=== PATIENT | female | born 1980 | race Caucasian/White ===

== ENCOUNTER 2016-07-26 09:30 | Emergency (ER) | payer OTHER ==
[~2016-07-26] VITALS: Ht 154.9 cm; Wt 76.7 kg
[~2016-07-26 09:30] MED LIST: CETI10TA22 PO; CLIN300C86 PO; HYDR-2666 PO; IBUP200T43 PO; IBUP800T PO; TRAM50TA PO
[2016-07-26] MEDS ORDERED: DIAZEPAM 10 MG/2 ML DISP.SYRIN. IV ONE (10:15)
[2016-07-26] MEDS ORDERED: DIPHENHYDRAMINE 50 MG/ML VIAL IVP ONE (10:15)
[2016-07-26] MEDS ORDERED: IV NORMAL SALINE 1,000ML 1,000 ML IV ONE (10:15)
[2016-07-26] MEDS ORDERED: KETOROLAC 15 MG/ML VIAL. IV ONE (10:15)
[2016-07-26] MEDS ORDERED: PROCHLORPERAZINE 10 MG/2 ML VIAL. IV ONE (10:15)
--- NOTE | 2016-07-26 10:52 | ED.ADGEN ---
Past History Past Medical History: No Pertinent History, Other Past Surgical History: Cancer Surgery, , Hysterectomy, Other Smoking: Non-smoker Alcohol Use: None Drug Use: None Adult General HPI HPI Patient is a 36-year-old female presents emergency department complaining of headache. Patient has a history of headaches. She states that this is been ongoing for approximately one week. Initially, it was responsive to Excedrin but has now become refractory. Other than bilateral parietal pain she denies any associated symptoms such as nausea, vomiting, visual changes. Review of Systems Review of Systems Constitutional: Denies fever or chills [] Eyes: Denies change in visual acuity, redness, or eye pain [] HENT: Denies nasal congestion or sore throat [] Respiratory: Denies cough or shortness of breath [] Cardiovascular: No additional information not addressed in HPI [] GI: Denies abdominal pain, nausea, vomiting, bloody stools or diarrhea [] : Denies dysuria or hematuria [] Musculoskeletal: Denies back pain or joint pain [] Integument: Denies rash or skin lesions [] Neurologic: Denies headache, focal weakness or sensory changes [] Endocrine: Denies polyuria or polydipsia [] Current Medications Current Medications Current Medications Medications (Trade) Dose Ordered Sig/Shira Start Time Stop Time Status Last Admin Dose Admin Diazepam (Valium) 5 mg 1X ONCE 07/26/16 10:15 07/26/16 10:16 DC 07/26/16 10:15 5 MG Diphenhydramine HCl 25 mg 25 mg 1X ONCE 07/26/16 10:15 07/26/16 10:16 DC 07/26/16 10:28 25 MG Ketorolac Tromethamine (Toradol) 15 mg 1X ONCE 07/26/16 10:15 07/26/16 10:16 DC 07/26/16 10:27 15 MG Prochlorperazine Edisylate (Compazine) 10 mg 1X ONCE 07/26/16 10:15 07/26/16 10:16 DC 07/26/16 10:27 10 MG Sodium Chloride (Iv Sodium Chloride 0.9% 1,000ml) 1,000 ml @ 1,000 mls/hr 1X ONCE 07/26/16 10:15 07/26/16 11:14 DC 07/26/16 10:15 1,000 MLS/HR Allergies Allergies Allergies Coded Allergies Type Severity Reaction Last Updated Verified Penicillins Allergy Unknown 09/04/15 Yes Physical Exam Physical Exam Constitutional: Well developed, well nourished, no acute distress, non-toxic appearance. [] HENT: Normocephalic, atraumatic, bilateral external ears normal, oropharynx moist, no oral exudates, nose normal. [] Eyes: PERRLA, EOMI, conjunctiva normal, no discharge. [] Neck: Normal range of motion, no tenderness, supple, no stridor. [] Cardiovascular:Heart rate regular rhythm, no murmur [] Lungs & Thorax: Bilateral breath sounds clear to auscultation [] Abdomen: Bowel sounds normal, soft, no tenderness, no masses, no pulsatile masses. [] Skin: Warm, dry, no erythema, no rash. [] Back: No tenderness, no CVA tenderness. [] Extremities: No tenderness, no cyanosis, no clubbing, ROM intact, no edema. [] Neurologic: Alert and oriented X 3, normal motor function, normal sensory function, no focal deficits noted. [] Psychologic: Affect normal, judgement normal, mood normal. [] Current Patient Data Vital Signs Vital Signs Date Time Temp Pulse Resp B/P Pulse Ox O2 Delivery O2 Flow Rate FiO2 07/26/16 09:30 97.8 80 20 100 Room Air EKG EKG [] Radiology/Procedures Radiology/Procedures [] Course & Med Decision Making Course & Med Decision Making Pertinent Labs and Imaging studies reviewed. (See chart for details) Patient given IV fluids and normal migraine cocktail here in emergency departments and see if we cannot obtain some relief for her. Patient will be sent home with supportive care and follow-up directions. [] Final Impression Final Impression Headache [] Problems: Dragon Disclaimer Dragon Disclaimer This electronic medical record was generated, in whole or in part, using a voice recognition dictation system. MADHAVI MACKAY MD Jul 26, 2016 10:52
[2016-07-26 11:45] VITALS: BP 109/58
== END 2016-07-26 11:45 | disposition home or self-care (01) ==
LOC: ER 09:30
DX: R51 Headache (principal); Z88.0 Allergy status to penicillin
CPT/HCPCS: 96361; 96374; 96375; 99284; J0780; J1200; J1885; J7030

== ENCOUNTER 2016-10-05 10:53 | Emergency (ER) | payer OTHER ==
[~2016-10-05] VITALS: Ht 154.9 cm; Wt 74.8 kg
[~2016-10-05 10:53] MED LIST changes: +CLIN300C8 PO; -CLIN300C86 PO; -HYDR-2666 PO; +HYDR-2758 PO; -IBUP800T PO; +IBUP800T19 PO
--- NOTE | 2016-10-05 11:26 | ED.ADGEN ---
Past History Past Medical History: No Pertinent History, Cancer, Migraines, Other Past Surgical History: Cancer Surgery, , Hysterectomy, Tonsillectomy, Other Smoking: Non-smoker Alcohol Use: None Drug Use: None Adult General Chief Complaint Chief Complaint Right eye discomfort HPI HPI Patient is a 36 year old female who presents with right eye discharge and mild to moderate photophobia and pain for the past 2-3 days since she [place] and some dust blew up. She does wear contact lenses which have been removed. She denies any matting or yellow drainage. Denies any blurry vision other than increased clear tearing. Denies headache or neck pain or ear pain. Denies any skin lesions to the face. Review of Systems Review of Systems Constitutional: Denies fever or chills [] Eyes: Denies change in visual acuity, redness, or eye pain [] HENT: Denies nasal congestion or sore throat [] Respiratory: Denies cough or shortness of breath [] Cardiovascular: No additional information not addressed in HPI [] GI: Denies abdominal pain, nausea, vomiting, bloody stools or diarrhea [] : Denies dysuria or hematuria [] Musculoskeletal: Denies back pain or joint pain [] Integument: Denies rash or skin lesions [] Neurologic: Denies headache, focal weakness or sensory changes [] Endocrine: Denies polyuria or polydipsia [] All systems negative except in the history of present illness Current Medications Current Medications Current Medications Medications (Trade) Dose Ordered Sig/Shira Start Time Stop Time Status Last Admin Dose Admin Fluorescein Sodium (Ful-Dottie 1mg) 1 strip 1X ONCE 10/05/16 11:45 10/05/16 11:46 DC 10/05/16 11:31 1 STRIP Tetracaine HCl (Tetracaine) 1 drop 1X ONCE 10/05/16 11:45 10/05/16 11:46 DC 10/05/16 11:31 1 DROP Allergies Allergies Allergies Coded Allergies Type Severity Reaction Last Updated Verified Penicillins Allergy Unknown 09/04/15 Yes Physical Exam Physical Exam Constitutional: Well developed, well nourished, no acute distress, non-toxic appearance. [] HENT: Normocephalic, atraumatic, bilateral external ears normal, oropharynx moist, no oral exudates, nose normal. [] Eyes: PERRLA, EOMI, conjunctiva injected, no discharge. Slit-lamp exam: Anterior chambers clear no hyphema and no hypopyon on no foreign body no corneal abrasion or dye uptake upper and lower lids were everted no foreign body seen. [] Neck: Normal range of motion, no tenderness, supple, no stridor. [] Cardiovascular:Heart rate regular rhythm, no murmur [] Lungs & Thorax: Bilateral breath sounds clear to auscultation [] Abdomen: Bowel sounds normal, soft, no tenderness, no masses, no pulsatile masses. [] Skin: Warm, dry, no erythema, no rash. [] Back: No tenderness, no CVA tenderness. [] Extremities: No tenderness, no cyanosis, no clubbing, ROM intact, no edema. [] Neurologic: Alert and oriented X 3, normal motor function, normal sensory function, no focal deficits noted. [] Psychologic: Affect normal, judgement normal, mood normal. [] EKG EKG [] Radiology/Procedures Radiology/Procedures [] Course & Med Decision Making Course & Med Decision Making Pertinent Labs and Imaging studies reviewed. (See chart for details) Tetracaine drops were instilled; fluorescein strips were used; slit lamp was used to evaluate patient's eye and eye upper and lower lids were everted. [] Final Impression Final Impression Right eye conjunctivitis, right iritis [] Problems: Dragon Disclaimer Dragon Disclaimer This electronic medical record was generated, in whole or in part, using a voice recognition dictation system. JOVANNY BOYER MD Oct 05, 2016 11:26
[2016-10-05] MEDS ORDERED: TETRACAINE 0.5% OPHTH SOLUTION 4ML BOTTLE. OD ONE (11:45)
[2016-10-05] MEDS ORDERED: FLUORESCEIN 1MG EYE STRIP. OD ONE (11:45)
[2016-10-05] MEDS ORDERED: CIPR5DRO RIGHTEYE (12:08)
[2016-10-05 12:20] VITALS: BP 149/75
== END 2016-10-05 12:20 | disposition home or self-care (01) ==
LOC: ER 10:53
DX: H10.9 Unspecified conjunctivitis (principal); H20.9 Unspecified iridocyclitis; G43.909 Migraine, unspecified, not intractable, without status migrainosus; Z88.0 Allergy status to penicillin
CPT/HCPCS: 99283

== ENCOUNTER 2017-02-26 09:11 | Emergency (ER) | payer OTHER ==
[~2017-02-26] VITALS: Ht 154.9 cm; Wt 74.8 kg
[~2017-02-26 09:11] MED LIST changes: +CIPR5DRO RIGHTEYE
[2017-02-26] MEDS ORDERED: HYDR-971 PO (09:40)
[2017-02-26] MEDS ORDERED: METH4TAB2 PO (09:40)
--- NOTE | 2017-02-26 09:40 | PHYS DOC ---
Past History Past Medical History: No Pertinent History Past Surgical History: , Hysterectomy Smoking: Non-smoker Alcohol Use: None Drug Use: None Adult General Chief Complaint Chief Complaint: LOWER EXT PAIN HPI HPI Patient is a 36 year old female who presents with complaint of left knee pain. Patient states her symptoms have been worsening over the past week. Patient states that she has had long-standing difficulty with her left knee and recently had arthroscopic surgery approximately one year ago for treatment. Patient was told at that time that she had arthritic changes and underwent mild surface revision to help with her symptoms. Patient states despite treatment she has been having continued difficulty with pain in the knee. Patient states however her pain has been significantly worsening over the past week. Patient rates her pain as 7 out of 10 currently. Patient states that she is able to independently ambulate but states that this does worsen her pain. Patient denies any associated redness or fever with her knee pain. Patient denies any recent trauma to the knee. Patient has been taking ibuprofen with no significant relief in symptoms. The patient states that she does not wish to follow back up with the orthopedic group that treated her year ago as she was not satisfied with their care. Review of Systems Review of Systems Constitutional: Denies fever or chills [] Eyes: Denies change in visual acuity, redness, or eye pain [] HENT: Denies nasal congestion or sore throat [] Musculoskeletal: Left knee pain[] Integument: Denies rash or skin lesions [] Neurologic: Denies headache, focal weakness or sensory changes [] Allergies Allergies Allergies Coded Allergies Type Severity Reaction Last Updated Verified Penicillins Allergy Unknown 09/04/15 Yes Physical Exam Physical Exam Constitutional: Alert, afebrile, appears in mild discomfort. [] HENT: Normocephalic, atraumatic, bilateral external ears normal, oropharynx moist, no oral exudates, nose normal. []] Skin: Warm, dry, no erythema, no rash. [] Back: No tenderness, no CVA tenderness. [] Extremities: No obvious deformity or swelling to left knee, no palpable effusion , tenderness to palpation along left lateral joint space, patellar tendon crepitus with range of motion, negative Matthieu test, distal pulses 2+. [] Neurologic: Alert and oriented X 3, normal motor function, normal sensory function, no focal deficits noted. [] Current Patient Data Vital Signs Vital signs reviewed and are stable. Please refer to nursing notes for specific values. Lab Results None performed EKG EKG Not performed[] Radiology/Procedures Radiology/Procedures Not performed[] Course & Med Decision Making Course & Med Decision Making Pertinent Labs and Imaging studies reviewed. (See chart for details) Patient is having acute exacerbation of chronic knee pain. Patient denies any recent trauma and patient has been able to bear full weight on the affected knee and ambulate independently. X-rays are not indicated at this time. The patient wishes to be referred to a different orthopedic surgeon. The patient was referred to Dr. Judith Noyola and advised to call their office tomorrow to set up an appointment in the next 1-2 weeks. The patient was given prescriptions for Medrol Dosepak and [place] to assist with control of pain. Advised return emergency department for any worsening symptoms. Patient was understanding and in agreement with treatment plan. Dragon Disclaimer Dragon Disclaimer This chart was dictated in whole or in part using Voice Recognition software in a busy, high-work load, and often noisy Emergency Department environment. It may contain unintended and wholly unrecognized errors or omissions. Departure Departure: Impression: Primary Impression: Left knee pain Disposition: HOME, SELF-CARE Condition: STABLE Referrals: SARAVANAN GILES APRN (PCP) JUDITH NOYOLA MD Patient Instructions: Knee Pain Additional Instructions: Call the office of Dr. Noyola and associates tomorrow morning to set up an appointment in the next 1-2 weeks for further evaluation of your knee pain. Please return to emergency department for any worsening symptoms. Scripts Hydrocodone Bit/Acetaminophen (NORCO 5-325 TABLET) 1 Each Tablet 1-2 TAB PO Q4-6HRS Y for PAIN, #15 TAB Prov: JOVANNY JONES MD 02/26/17 Methylprednisolone (MEDROL) 4 Mg Tab.ds.pk 1 PKG PO UD, #1 PKG Prov: JOVANNY JONES MD 02/26/17 Problem Qualifiers Primary Impression: Left knee pain Chronicity: chronic Qualified Codes: M25.562 - Pain in left knee; G89.29 - Other chronic pain JOVANNY JONES MD Feb 26, 2017 09:40
[2017-02-26 09:49] VITALS: BP 108/77
== END 2017-02-26 09:49 | disposition home or self-care (01) ==
LOC: ER 09:11
DX: M25.562 Pain in left knee (principal); G89.29 Other chronic pain; Z88.0 Allergy status to penicillin
CPT/HCPCS: 99283

== ENCOUNTER → 2017-05-05 | Outpatient (CLI) | payer OTHER ==
[~2017-05-05] MED LIST changes: +HYDR-971 PO; -IBUP200T43 PO; +IBUP200T44 PO; +METH4TAB2 PO
--- NOTE | 2017-05-05 09:26 | RAD ---
Indication: Left knee pain since surgery in December 2016 Findings: 3 views of the left knee with single AP view of the right knee. Comparison: Study from 01/16/2014 Findings: No acute fracture or dislocation. No suprapatellar effusion. No significant joint space narrowing or productive changes. Mild medial subluxation of the patella noted in the trochlear groove. Impression: No acute findings. No significant evidence of osteoarthritis.
== END | disposition home or self-care (01) ==
LOC: DXRAD 08:53
PROVIDERS: ATTEND Orthopaedic Surgery
DX: M25.562 Pain in left knee (principal); Z98.890 Other specified postprocedural states
CPT/HCPCS: 73562

== ENCOUNTER 2018-10-13 14:49 | Emergency (ER) | payer OTHER ==
[~2018-10-13] VITALS: Ht 154.9 cm; Wt 77.1 kg
[~2018-10-13 14:49] MED LIST changes: +HYDR-2155 PO; -HYDR-2758 PO; +HYDR-3165 PO; -HYDR-971 PO
[2018-10-13 14:55] VITALS: BP 123/67
--- NOTE | 2018-10-13 16:17 | PHYS DOC ---
Past History Past Medical History: Depression Past Surgical History: , Hysterectomy, Other Smoking: Non-smoker Alcohol Use: None Drug Use: None Adult General Chief Complaint Chief Complaint: SKIN RASH/ABSCESS [facility] HPI 38-year-old female presents with rash on the medial left knee. The patient states that she felt like she insect bite some time yesterday and it was very pruritic. She scratched a couple times, but then it seemed to look more swollen and red. She was able to sleep last night. When she woke up this morning, she noticed that there were little red dots inside of the area, though the overall area was decreased in size. It is still pruritic. Patient denies any other inju rashaad or bites. She denies loss make sure is not infected. Review of Systems Review of Systems Constitutional: Denies fever or chills [] Eyes: Denies change in visual acuity, redness, or eye pain [] HENT: Denies nasal congestion or sore throat [] Respiratory: Denies cough or shortness of breath [] Cardiovascular: No additional information not addressed in HPI [] GI: Denies abdominal pain, nausea, vomiting, bloody stools or diarrhea [] : Denies dysuria or hematuria [] Musculoskeletal: Denies back pain or joint pain [] Integument: Rash left knee] Neurologic: Denies headache, focal weakness or sensory changes [] Endocrine: Denies polyuria or polydipsia [] All other systems were reviewed and found to be within normal limits, except as documented in this note. Allergies Allergies Allergies Coded Allergies Type Severity Reaction Last Updated Verified Penicillins Allergy Unknown 09/04/15 Yes Physical Exam Physical Exam Constitutional: Well developed, well nourished, no acute distress, non-toxic appearance. [] HENT: Normocephalic, atraumatic, bilateral external ears normal, oropharynx moist, no oral exudates, nose normal. [] Eyes: PERRLA, EOMI, conjunctiva normal, no discharge. [] Neck: Normal range of motion, no tenderness, supple, no stridor. [] Cardiovascular:Heart rate regular rhythm, no murmur [] Lungs & Thorax: Bilateral breath sounds clear to auscultation [] Abdomen: Bowel sounds normal, soft, no tenderness, no masses, no pulsatile masses. [] Skin: 1.5 cm in the area of skin on the medial left knee consistent with insect bite and scratching. It is not hot or erythematous. No signs of infection.[] Back: No tenderness, no CVA tenderness. [] Extremities: No tenderness, no cyanosis, no clubbing, ROM intact, no edema. [] Neurologic: Alert and oriented X 3, normal motor function, normal sensory function, no focal deficits noted. [] Psychologic: Affect normal, judgement normal, mood normal. [] Current Patient Data Vital Signs Vital Signs Date Time Temp Pulse Resp B/P (MAP) Pulse Ox O2 Delivery O2 Flow Rate FiO2 10/13/18 14:55 98.7 96 16 98 Room Air EKG EKG [] Radiology/Procedures Radiology/Procedures [] Course & Med Decision Making Course & Med Decision Making Pertinent Labs and Imaging studies reviewed. (See chart for details) I believe the patient insect bite has been itching. I do not see signs of infection and will not treat her with buttocks this time. I have told her what signs to look for. She is stable for discharge at this time. [] Dragon Disclaimer Dragon Disclaimer This electronic medical record was generated, in whole or in part, using a voice recognition dictation system. Departure Departure: Impression: Primary Impression: Insect bite Disposition: HOME, SELF-CARE Condition: STABLE Referrals: ADY VALENCIA MD (PCP) Patient Instructions: Insect Bite, [id number] ERNESTO SANCHEZ DO Oct 13, 2018 16:17
== END 2018-10-13 16:20 | disposition home or self-care (01) ==
LOC: ER 14:49
DX: S80.262A Insect bite (nonvenomous), left knee, initial encounter (principal); F32.9 Major depressive disorder, single episode, unspecified; Z88.0 Allergy status to penicillin; W57.XXXA Bitten or stung by nonvenomous insect and other nonvenomous arthropods, initial encounter; Y93.89 Activity, other specified; Y92.89 Other specified places as the place of occurrence of the external cause; Y99.8 Other external cause status
CPT/HCPCS: 99281

== ENCOUNTER → 2019-07-04 | Emergency (ER) | payer MEDICAID, OTHER ==
[~2019-07-04] VITALS: Ht 156.2 cm; Wt 81.8 kg
[~2019-07-04] MED LIST changes: -CETI10TA22 PO; +CETI10TA24 PO
[2019-07-04 15:10] VITALS: BP 121/66
--- NOTE | 2019-07-04 15:14 | PHYS DOC ---
Past History Past Medical History: Depression Past Surgical History: , Hysterectomy, Other Smoking: Non-smoker Alcohol Use: None Drug Use: None Adult General Chief Complaint Chief Complaint: TOE PROBLEM HPI HPI Walking down stairs last night and slipped. Pain right 5th toe. Pain mild. 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 Some stinging, no numbness. Review of Systems Review of Systems Constitutional: Denies fever or chills [] Eyes: Denies change in visual acuity, redness, or eye pain [] HENT: Denies nasal congestion or sore throat [] Respiratory: Denies cough or shortness of breath [] Cardiovascular: No additional information not addressed in HPI [] GI: Denies abdominal pain, nausea, vomiting, bloody stools or diarrhea [] : Denies dysuria or hematuria [] Musculoskeletal: Denies back pain or joint pain [] Integument: Denies rash or skin lesions [] Neurologic: Denies headache, focal weakness or sensory changes [] Endocrine: Denies polyuria or polydipsia [] All other systems were reviewed and found to be within normal limits, except as documented in this note. Allergies Allergies Allergies Coded Allergies Type Severity Reaction Last Updated Verified Penicillins Allergy Unknown 09/04/15 Yes Physical Exam Physical Exam Constitutional: Well developed, well nourished, no acute distress, non-toxic appearance. [] HENT: Normocephalic, atraumatic, bilateral external ears normal, oropharynx moist, no oral exudates, nose normal. [] Eyes: PERRLA, EOMI, conjunctiva normal, no discharge. [] Neck: Normal range of motion, no tenderness, supple, no stridor. [] Cardiovascular:Heart rate regular rhythm, no murmur [] Lungs & Thorax: Bilateral breath sounds clear to auscultation [] Abdomen: Bowel sounds normal, soft, no tenderness, no masses, no pulsatile masses. [] Skin: Warm, dry, no erythema, no rash. [] Back: No tenderness, no CVA tenderness. [] Extremities: Mild swellign right little toe with TTP and slight contusion, no cyanosis, no clubbing, ROM intact, no edema. [] Neurologic: Alert and oriented X 3, normal motor function, normal sensory function, no focal deficits noted. [] Psychologic: Affect normal, judgement normal, mood normal. [] EKG EKG [] Radiology/Procedures Radiology/Procedures [] Toe x-ray is negative per emergency physician interpretation. Course & Med Decision Making Course & Med Decision Making Pertinent Labs and Imaging studies reviewed. (See chart for details) Seen for toe pain. X-ray negative. Recommend ibuprofen and Tylenol. Dragon Disclaimer Dragon Disclaimer This electronic medical record was generated, in whole or in part, using a voice recognition dictation system. Departure Departure: Impression: Primary Impression: Toe pain, right Disposition: HOME, SELF-CARE Condition: STABLE Referrals: ADY VALENCIA MD (PCP) Please follow-up for symptoms that do not seem to be improving in the next 3 to 5 days Additional Instructions: Please take ibuprofen and Tylenol for pain ROBER MARTIN DO Jul 04, 2019 15:14
--- NOTE | 2019-07-04 16:19 | RAD ---
Right fifth toe x-rays 3 views HISTORY: Right fifth toe pain. FINDINGS: The fifth toe proximal phalanx is somewhat obscured on the lateral view due to overlapping density of the other toes however in light of this no fracture or dislocation of the phalanges of the fifth toe are evident. Remaining visualized toes on the AP view are intact. Soft tissues unremarkable. IMPRESSION: No acute osseous injury evident. Electronically signed by: Kj Skelton MD (07/04/2019 4:16 PM) [id number]
== END | disposition home or self-care (01) ==
LOC: ER 15:00
DX: M79.674 Pain in right toe(s) (principal); Z88.0 Allergy status to penicillin; W10.8XXA Fall (on) (from) other stairs and steps, initial encounter; Y93.89 Activity, other specified; Y92.89 Other specified places as the place of occurrence of the external cause; Y99.8 Other external cause status
CPT/HCPCS: 73660; 99283

== ENCOUNTER 2019-07-25 18:35 | Emergency (ER) | payer MEDICAID ==
[~2019-07-25] VITALS: Ht 154.9 cm; Wt 81.5 kg
--- NOTE | 2019-07-25 18:39 | PHYS DOC ---
Past History Past Medical History: Anxiety, Depression, GERD Past Surgical History: Tonsillectomy Additional Past Surgical Histo: LEFT ANKLE, LEFT KNEE, PARTIAL HYSTERECTOMY Smoking: Non-smoker Alcohol Use: None Drug Use: None Adult General Chief Complaint Chief Complaint: "... I have an upset stomach.. it is rumbling... maybe a little nausea... I did eat a sandwich and an some hungarian food about a hour ago... ".. " I ve actually had the discomfort all day..." [facility] HPI Patient is a 39 year old female who presents with above hx and complaints of epigastric chest and abdomen pain. Patient did eat a sandwich and [place] food approximately an hour ago. No active vomiting no diarrhea. Mild nausea. Pain is localized epigastric and some reflux. Patient denies any recent travel outside the cancer the area. No specific ill contacts. No history of dark or tarry stools. No history of colitis with her family members. Patient denies any trauma. Patient denies any history immunosuppression. Patient does not get a flu shot because she thinks it makes her the flu. Does have a history depression , anxiety and allergies. Has had previous abdomen surgeries oophorectomy and hysterectomy. Pt. follows with Dr Jackson. Review of Systems Review of Systems Constitutional: Denies fever or chills [] Eyes: Denies change in visual acuity, redness, or eye pain [] HENT: Denies nasal congestion or sore throat [] Respiratory: Denies cough or shortness of breath [] Cardiovascular: No additional information not addressed in HPI [] GI: Complaints of epigastric abdominal pain. Denies, nausea, vomiting, bloody stools or diarrhea [] : Denies dysuria or hematuria [] Musculoskeletal: Denies back pain or joint pain [] Integument: Denies rash or skin lesions [] Neurologic: Denies headache, focal weakness or sensory changes [] Endocrine: Denies polyuria or polydipsia [] All other systems were reviewed and found to be within normal limits, except as documented in this note. Family History Family History Noncontributory to presentation Current Medications Current Medications He nursing for home meds Allergies Allergies Allergies Coded Allergies Type Severity Reaction Last Updated Verified Penicillins Allergy Unknown 09/04/15 Yes Physical Exam Physical Exam Constitutional: no acute distress, non-toxic appearance. [] HENT: Normocephalic, atraumatic, bilateral external ears normal, oropharynx moist, no oral exudates, nose normal. [] Eyes: PERRLA, EOMI, conjunctiva normal, no discharge. Glasses Neck: Normal range of motion, no tenderness, supple, no stridor. [] Cardiovascular:Heart rate regular rhythm, no murmur [] Lungs & Thorax: Bilateral breath sounds equal at apex auscultation [] Abdomen: Bowel sounds are proactive, soft, mild epigastric tenderness, no masses, no pulsatile masses. []Old surgery scars. Skin: Warm, dry, no erythema, no rash. [] Back: No tenderness, no CVA tenderness. [] Extremities: No tenderness, no cyanosis, no clubbing, ROM intact, no edema. No Cording appreciated. Left knee and ankle scar. Neurologic: Alert and oriented X 3, normal motor function, normal sensory function, no focal deficits noted. [] Psychologic: Affect anxious, judgement normal, mood normal. [] EKG EKG EKG shows a sinus rhythm at 85 bpm. No acute morphology.[] Radiology/Procedures Radiology/Procedures [][place] [address] IMAGING REPORT Signed PATIENT: MAHENDRA WORRELL AACCOUNT: [id number] : 1980 LOCATION: ER AGE: 39 SEX: F EXAM STATUS: REG ER ORD. PHYSICIAN: JEAN MARIE ONEILL MD REASON: Pain PROCEDURE: ABDOMEN SUPINE & UPRIGHT Two-view chest and two-view abdomen dated 07/25/2019. No comparison available. CLINICAL INDICATION: Pain. FINDINGS: PA and lateral views of the chest show normal heart and mediastinal contours. Lungs are clear. No consolidation or pleural effusion. No pneumothorax. Flat and upright views the abdomen show nondilated gas-filled loops of bowel throughout. No abnormal calcification. No air-fluid level or pneumoperitoneum on the upright view. IMPRESSION: No acute radiographic abnormality. Nonobstructive bowel gas pattern. Electronically signed by: Jesús Jones MD (07/25/2019 7:31 PM) [id number] DICTATED AND SIGNED BY: JESÚS JONES MD DATE: 07/25/19 193 CC: JEAN MARIE ONEILL MD; ADY JACKSON MD ~ Course & Med Decision Making Course & Med Decision Making Pertinent Labs and Imaging studies reviewed. (See chart for details) Obtain a clear fluid diet for the next 2 days. No solids or milk products. Must allow bowel rest. Push clear fluids. Take Tylenol and ibuprofen for discomfort. Follow-up primary care. Return if any concerns. Take Pepcid 20 mg a day. Push fruit juices. Impression: 1. Gastritis/ GERD 2. Hypokalemia 3.2 3. Viral syndrome [] Dragon Disclaimer Dragon Disclaimer This electronic medical record was generated, in whole or in part, using a voice recognition dictation system. Departure Departure: Disposition: HOME/RESIDENCE PRIOR TO ADM Condition: STABLE Referrals: ADY JACKSON MD (PCP) Scripts Famotidine (PEPCID) 20 Mg Tablet 20 MG PO DAILY for gastritis for 30 Days, #30 TAB Prov: JEAN MARIE ONEILL MD 07/25/19 Dragon Disclaimer This chart was dictated in whole or in part using Voice Recognition software in a busy, high-work load, and often noisy Emergency Department environment. It may contain unintended and wholly unrecognized errors or omissions. Dragon Disclaimer This chart was dictated in whole or in part using Voice Recognition software in a busy, high-work load, and often noisy Emergency Department environment. It may contain unintended and wholly unrecognized errors or omissions. JEAN MARIE ONEILL MD Jul 25, 2019 18:39
[2019-07-25] MEDS ORDERED: IV RINGERS SOLUTION,LACTATED 1,000 ML IV SCH (18:42)
[2019-07-25 19:00] VITALS: BP 134/88
[2019-07-25] MEDS ORDERED: FAMOTIDINE 20 MG/2 ML VIAL IVP ONE (19:15)
[2019-07-25] MEDS ORDERED: ONDANSETRON PF 4 MG/2 ML VIAL. IVP ONE (19:15)
[2019-07-25] MEDS ORDERED: ASPIRIN 81 MG TAB.CHEW PO ONE (19:15)
--- NOTE | 2019-07-25 19:34 | RAD ---
Two-view chest and two-view abdomen dated 07/25/2019. No comparison available. CLINICAL INDICATION: Pain. FINDINGS: PA and lateral views of the chest show normal heart and mediastinal contours. Lungs are clear. No consolidation or pleural effusion. No pneumothorax. Flat and upright views the abdomen show nondilated gas-filled loops of bowel throughout. No abnormal calcification. No air-fluid level or pneumoperitoneum on the upright view. IMPRESSION: No acute radiographic abnormality. Nonobstructive bowel gas pattern. Electronically signed by: Jesús Jones MD (07/25/2019 7:31 PM) [id number]
[2019-07-25 19:40] LABS: BASO % 0 % (0-3); EOS # 0.2 x10^3/uL (0.0-0.7); EOS % 2 % (0-3); HEMATOCRIT 40.4 % (36.0-47.0); HEMOGLOBIN 13.9 g/dL (12.0-15.5); LYMPH # 1.9 x10^3/uL (1.0-4.8); LYMPH % 20 % (24-48); MEAN CORPUSCULAR HEMOGLOBIN 29 pg (25-35); MEAN CORPUSCULAR HGB CONC 34 g/dL (31-37); MEAN CORPUSCULAR VOLUME 85 fL (79-100); MONO # 0.6 x10^3/uL (0.0-1.1); MONO % 7 % (0-9); NEUT # 6.7 x10^3uL (1.8-7.7); NEUT % 71 % (31-73); PLATELET COUNT 275 x10^3/uL (140-400); RED BLOOD COUNT 4.74 x10^6/uL (3.50-5.40); RED CELL DISTRIBUTION WIDTH 13.1 % (11.5-14.5); WHITE BLOOD COUNT 9.4 x10^3/uL (4.0-11.0)
[2019-07-25] MEDS ORDERED: FAMO-63 PO (19:47)
[2019-07-25 19:50] LABS: CALCIUM 8.6 mg/dL (8.5-10.1); GFR 61.7; POTASSIUM 3.2 mmol/L (3.5-5.1)
[2019-07-25 20:02] LABS: ALBUMIN 3.9 g/dL (3.4-5.0); DIRECT BILIRUBIN 0.1 mg/dL (0.0-0.2); MAGNESIUM 1.8 mg/dL (1.8-2.4); TOTAL BILIRUBIN 0.2 mg/dL (0.2-1.0); TOTAL PROTEIN 7.5 g/dL (6.4-8.2)
[2019-07-25 20:06] LABS: BARBITURATES NEG (NEG); BENZODIAZEPINES NEG (NEG); CANNABINOIDS NEG (NEG); COCAINE NEG (NEG); METHADONE NEG (NEG); OPIATES NEG (NEG); PHENCYCLIDINE NEG (NEG)
[2019-07-25 20:10] LABS: AMPHETAMINE/METHAMPHETAMINE NEG (NEG)
[2019-07-25] MEDS ORDERED: MAGNESIUM HYDROXIDE 2,400 MG/30 ML ORAL.SUSP. PO ONE (20:15)
[2019-07-25] MEDS ORDERED: POTASSIUM CHLORIDE 10 MEQ TABLET.ER. PO ONE (20:45)
[2019-07-25 21:23] LABS: BILIRUBIN,URINE NEG (NEG); CLARITY,URINE CLEAR; COLOR,URINE YELLOW; GLUCOSE,URINE NEG (NEG); NITRITE,URINE NEG (NEG); UROBILINOGEN,URINE 0.2 mg/dL (0.2 mg/dL)
[2019-07-25 21:24] LABS: BACTERIA,URINE MOD /HPF (0-FEW); SQUAMOUS EPITHELIAL CELL,UR OCC /LPF
--- NOTE | 2019-07-25 23:31 | EKG ---
[address] [address] Test Date: 2019-07-25 Test Time: 19:23:38 Pat Name: MAHENDRA WORRELL Department: Room: Gender: F [employer] Supervisor: : 1980 Requested By: JEAN MARIE ONEILL Order Number: [id number] Reading MD: Measurements Intervals [place] Rate: 85 P: 0 CO: 116 QRS: 41 QRSD: 78 T: 24 QT: 380 QTc: 452 Interpretive Statements SINUS RHYTHM NORMAL ECG RI6.01 No previous ECG available for comparison
== END 2019-07-25 20:25 | disposition home or self-care (01) ==
LOC: ER 18:35
DX: B34.9 Viral infection, unspecified (principal); E87.6 Hypokalemia; K21.9 Gastro-esophageal reflux disease without esophagitis; Z90.710 Acquired absence of both cervix and uterus; Z88.0 Allergy status to penicillin
CPT/HCPCS: 36415; 71046; 74019; 80048; 80076; 80307; 81001; 82150; 82550; 83690; 83735; 83880; 84443; 84484; 85025; 85379; 85610; 85730; 87086; 93005; 96374; 96375; 99285; J2405; J3490; J7120

== ENCOUNTER → 2020-01-21 | Outpatient (CLI) | payer MEDICAID ==
[~2020-01-21] MED LIST changes: -CETI10TA24 PO; +CETI10TA74 PO; +FAMO-63 PO
--- NOTE | 2020-01-21 13:03 | RAD ---
PROCEDURE: KNEE BILAT 2V STUDY DATE: 01/21/2020 CLINICAL INDICATION / HISTORY: Reason: BILATERAL KNEE PAIN, LEFT HARD TO STRAIGHTEN, PAIN BEHIND RT KNEE / Spl. Instructions: / History: . TECHNIQUE: AP and lateral views of both knees were obtained COMPARISON: None FINDINGS: The osseous structures are intact. The articular surfaces are smooth. The joint space is maintained. No intra-articular loose bodies. The alignment is within normal limits. The soft tissues are unremarkable. No obvious joint effusion. No radio-opaque foreign bodies are identified. No significant degenerative changes. IMPRESSION: No fracture or dislocation is identified and no significant degenerative changes in either knee.. Electronically signed by: Dani Flores MD (01/21/2020 1:00 PM) [id number]
== END | disposition home or self-care (01) ==
LOC: RAD 10:05
PROVIDERS: ATTEND Family Medicine
DX: M25.561 Pain in right knee (principal); M25.562 Pain in left knee
CPT/HCPCS: 73560

== ENCOUNTER 2021-05-16 11:32 | Emergency (ER) | payer MEDICAID ==
[~2021-05-16] VITALS: Ht 154.9 cm; Wt 77.3 kg
[~2021-05-16 11:32] MED LIST changes: +CLIN-95 PO; -CLIN300C8 PO
[2021-05-16 11:35] VITALS: BP 128/72
--- NOTE | 2021-05-16 12:23 | RAD ---
XR FINGER(S)_RIGHT 2+VIEWS DATE: 05/16/2021 11:56 AM INDICATION: pain COMPARISON: None. FINDINGS/ IMPRESSION: Tiny ossific density along the volar aspect of the fifth DIP joint, which may represent an age indete rminate distal phalanx volar plate avulsion. Correlate for focal tenderness/mechanism of injury. Electronically signed by: Christiano Randhawa MD (05/16/2021 12:21 PM) [id number]
--- NOTE | 2021-05-16 12:30 | PHYS DOC ---
Past History Past Medical History: Anxiety, Depression, GERD Past Surgical History: , Hysterectomy Additional Past Surgical Histo: LEFT ANKLE, LEFT KNEE, PARTIAL HYSTERECTOMY Smoking: Non-smoker Alcohol Use: None Drug Use: None General Adult EDM: Chief Complaint: FINGER INJURY HPI: HPI: 41-year-old female presents with right little finger pain. She jammed her finger against a cabinet about a month ago. She continues to have pain distal interphalangeal joint. It is annoying so she decided to come in for evaluation. She has no other complaints this time. Review of Systems: Review of Systems: Constitutional: Denies fever or chills Eyes: Denies change in visual acuity HENT: Denies nasal congestion or sore throat Respiratory: Denies cough or shortness of breath Cardiovascular: Denies chest pain or edema GI: Denies abdominal pain, nausea, vomiting, bloody stools or diarrhea : Denies dysuria Musculoskeletal: Right little finger pain Integument: Denies rash Neurologic: Denies headache, focal weakness or sensory changes Endocrine: Denies polyuria or polydipsia Lymphatic: Denies swollen glands Psychiatric: Denies depression or anxiety Allergies: Allergies: Allergies Coded Allergies Type Severity Reaction Last Updated Verified Penicillins Allergy Unknown 09/04/15 Yes Physical Exam: PE: Constitutional: Well developed, well nourished, obese, no acute distress, non- toxic appearance. [] HENT: Normocephalic, atraumatic, bilateral external ears normal, oropharynx moist, no oral exudates, nose normal. [] Eyes: PERRLA, EOMI, conjunctiva normal, no discharge. [] Neck: Normal range of motion, no tenderness, supple, no stridor. [] Cardiovascular:Heart rate regular rhythm, no murmur [] Lungs & Thorax: Bilateral breath sounds clear to auscultation [] Abdomen: Bowel sounds normal, soft, no tenderness, no masses, no pulsatile masses. [] Skin: Warm, dry, no erythema, no rash. [] Back: No tenderness, no CVA tenderness. [] Extremities: Mild tenderness of the distal fifth digit right hand, no ecchymosis or obvious deformity. [] Neurologic: Alert and oriented X 3, normal motor function, normal sensory function, no focal deficits noted. [] Psychologic: Affect normal, judgement normal, mood normal. [] EKG: EKG: [] Radiology/Procedures: Radiology/Procedures: [] Impressions: XR FINGER(S)_RIGHT 2+VIEWS DATE: 05/16/2021 11:56 AM INDICATION: pain COMPARISON: None. FINDINGS/ IMPRESSION: Tiny ossific density along the volar aspect of the fifth DIP joint, which may represent an age indeterminate distal phalanx volar plate avulsion. Correlate fo r focal tenderness/mechanism of injury. Electronically signed by: Lindsey Quiroz MD (05/16/2021 12:21 PM) [id number] DICTATED AND SIGNED BY: LINDSEY QUIROZ MD DATE: 05/16/21 1214 CC: ERNESTO SANCHEZ DO; ADY VALENCIA MD ~MTH0 0 Heart Score: C/O Chest Pain: N/A Risk Factors: Risk Factors: DM, Current or recent (<one month) smoker, HTN, HLP, family history of CAD, obesity. Risk Scores: Score 0 - 3: 2.5% MACE over next 6 weeks - Discharge Home Score 4 - 6: 20.3% MACE over next 6 weeks - Admit for Clinical Observation Score 7 - 10: 72.7% MACE over next 6 weeks - Early Invasive Strategies Course & Med Decision Making: Course & Med Decision Making Pertinent Labs and Imaging studies reviewed. (See chart for details) The patient's x-ray does show small density along the left volar aspect of the fifth DIP joint. This may have been a fracture. See official read for more details. There is nothing to do different for the patient. This will heal on its own. Patient states verbal understanding. She is stable for discharge at this time. [] Dragon Disclaimer: Dragon Disclaimer: This electronic medical record was generated, in whole or in part, using a voice recognition dictation system. Departure Departure: Impression: Primary Impression: Finger fracture, right Qualified Codes: S62.666A - Nondisplaced fracture of distal phalanx of right little finger, initial encounter for closed fracture Disposition: HOME / SELF CARE / HOMELESS Condition: STABLE Referrals: ADY VALENCIA MD (PCP) Patient Instructions: Finger Fracture, [id number] ERNESTO SACNHEZ DO May 16, 2021 12:30
== END 2021-05-16 12:50 | disposition home or self-care (01) ==
LOC: ER 11:32
DX: S62.666A Nondisplaced fracture of distal phalanx of right little finger, initial encounter for closed fracture (principal); K21.9 Gastro-esophageal reflux disease without esophagitis; Z88.0 Allergy status to penicillin; Z90.710 Acquired absence of both cervix and uterus; X58.XXXA Exposure to other specified factors, initial encounter; Y93.89 Activity, other specified; Y92.89 Other specified places as the place of occurrence of the external cause; Y99.8 Other external cause status
CPT/HCPCS: 73140; 99283-25

== ENCOUNTER 2021-08-06 03:30 | Emergency (ER) | payer MEDICAID ==
[~2021-08-06] VITALS: Ht 156.2 cm; Wt 79.1 kg
[2021-08-06] MEDS ORDERED: ONDANSETRON PF 4 MG/2 ML VIAL. IVP ONE (03:45)
[2021-08-06] MEDS ORDERED: IV NORMAL SALINE 1,000ML 1,000 ML IV ONE (03:45)
--- NOTE | 2021-08-06 03:49 | PHYS DOC ---
Past History Past Medical History: Anxiety, Depression, GERD Past Surgical History: , Hysterectomy Additional Past Surgical Histo: LEFT ANKLE, LEFT KNEE, PARTIAL HYSTERECTOMY Smoking: Non-smoker Alcohol Use: None Drug Use: None General Adult EDM: Chief Complaint: ABDOMINAL PAIN HPI: HPI: 41-year-old female presents with epigastric abdominal pain. The patient was sleeping when she was awoken from her sleep with a central abdominal pain that was an 8 out of 10 cramping. It is currently 8 out of 10. Patient has no idea what is going on. She has not had pain like this before. She denies fever or chills. She was feeling normal prior to this episode. She had a bowel movement yesterday. She has had a hysterectomy due to cervical cancer. She still has her appendix and gallbladder. She denies trauma or fall. Review of Systems: Review of Systems: Constitutional: Denies fever or chills Eyes: Denies change in visual acuity HENT: Denies nasal congestion or sore throat Respiratory: Denies cough or shortness of breath Cardiovascular: Denies chest pain or edema GI: Epigastric abdominal pain, nausea. Denies vomiting, bloody stools or diarrhea : Denies dysuria Musculoskeletal: Denies back pain or joint pain Integument: Denies rash Neurologic: Denies headache, focal weakness or sensory changes Endocrine: Denies polyuria or polydipsia Lymphatic: Denies swollen glands Psychiatric: Denies depression or anxiety Current Medications: Current Meds: Current Medications Medications (Trade) Dose Ordered Sig/[facility] Start Time Stop Time Status Last Admin Dose Admin Ondansetron HCl (Zofran) 4 mg 1X ONCE 08/06/21 03:45 08/06/21 03:46 DC Sodium Chloride 1,000 ml @ 1,000 mls/hr 1X ONCE 08/06/21 03:45 08/06/21 04:44 Allergies: Allergies: Allergies Coded Allergies Type Severity Reaction Last Updated Verified Penicillins Allergy Unknown 09/04/15 Yes Physical Exam: PE: Constitutional: Well developed, well nourished, obese, no acute distress, non- toxic appearance. [] HENT: Normocephalic, atraumatic, bilateral external ears normal, oropharynx moist, no oral exudates, nose normal. [] Eyes: PERRLA, EOMI, conjunctiva normal, no discharge. [] Neck: Normal range of motion, no tenderness, supple, no stridor. [] Cardiovascular:Heart rate regular rhythm, no murmur [] Lungs & Thorax: Bilateral breath sounds clear to auscultation [] Abdomen: Bowel sounds normal, soft, epigastric tenderness, no masses, no pulsatile masses. [] Skin: Warm, dry, no erythema, no rash. [] Back: No tenderness, no CVA tenderness. [] Extremities: No tenderness, no cyanosis, no clubbing, ROM intact, no edema. [] Neurologic: Alert and oriented X 3, normal motor function, normal sensory function, no focal deficits noted. [] Psychologic: Affect normal, judgement normal, mood normal. [] EKG: EKG: [] Radiology/Procedures: Radiology/Procedures: [] Impressions: EXAM: CT Abdomen and Pelvis with IV contrast CLINICAL HISTORY: Reason: OMNI 300, 75 ML IV.Epigastric pain.HX PARTIAL HYSTER, / Spl. Instructions: / History: . COMPARISON: none TECHNIQUE: Helical CT of the abdomen and pelvis was performed following the administration of intravenous contrast. Axial, coronal and sagittal reformatted images were generated. Images were made available for interpretation of 4:27 AM PQRS compliance statement - One or more of the following individualized dose reduction techniques were utilized for this study: 1. Automated exposure control 2. Adjustment of the mA and/or kV according to patient size 3. Use of iterative reconstruction technique FINDINGS: Lower Chest: 9 mm groundglass nodule right lower lobe. Abdomen and Pelvis: Liver, spleen, adrenal glands and pancreas are unremarkable. Gallbladder wall is mildly indistinct, possibly physiologic for this patient although cholecystitis, some of this appearance. Kidneys are normal. No hydronephrosis or hydroureter. Bladder is unremarkable. Moderate colonic stool content. Appendix is normal. No small or large bowel dilatation. No bowel obstruction. There has been a hysterectomy. Both ovaries are seen. No abdominal or pelvic ascites. No abdominal or pelvic lymphadenopathy. Fat-containing periumbilical hernia. No aggressive osseous lesion is seen. IMPRESSION: 1. Gallbladder wall is mildly indistinct, possibly physiologic or reactive although early cholecystitis could also have this appearance. This can be correlated with patient's lab values and symptoms. If additional imaging is clinically required ultrasound would provide additional details. 2. Fat-containing periumbilical hernia. 3. 9 mm groundglass nodule right lower lobe. Per Fleischner Society guidelines for incidentally found solitary ground-glass nodule measuring 6 mm or larger, follow-up CT is recommended in 6-12 months, then every 2 years until 5 years. Electronically signed by: Baljit Lance MD (08/06/2021 4:41 AM) [facility] DICTATED AND SIGNED BY: BALJIT LANCE MD DATE: 08/06/21 0429 CC: ERNESTO SANCHEZ DO; ADY VALENCIA MD ~ Heart Score: C/O Chest Pain: N/A Risk Factors: Risk Factors: DM, Current or recent (<one month) smoker, HTN, HLP, family history of CAD, obesity. Risk Scores: Score 0 - 3: 2.5% MACE over next 6 weeks - Discharge Home Score 4 - 6: 20.3% MACE over next 6 weeks - Admit for Clinical Observation Score 7 - 10: 72.7% MACE over next 6 weeks - Early Invasive Strategies Course & Med Decision Making: Course & Med Decision Making Pertinent Labs and Imaging studies reviewed. (See chart for details) The patient's labs are unremarkable. CT of the abdomen and pelvis shows gal lbladder wall mildly indistinct could be consistent with early cholecystitis. The patient's labs do not support this diagnosis however. Patient also has some incidental findings. See official read for more details. I have made the patient aware of these and the need to follow-up. At this time, the patient does not meet admission criteria. I have informed her that if her condition worsens she may need to come back to the hospital for repeat evaluation. This may just be a viral illness. She is stable for discharge at this time. [] Dragon Disclaimer: Dragon Disclaimer: This electronic medical record was generated, in whole or in part, using a voice recognition dictation system. Departure Departure: Impression: Primary Impression: Epigastric abdominal pain Disposition: HOME / SELF CARE / HOMELESS Condition: STABLE Referrals: ADY VALENCIA MD (PCP) Patient Instructions: Abdominal Pain, [id number] ERNESTO SANCHEZ DO Aug 06, 2021 03:49
[2021-08-06] MEDS ORDERED: CONTRAST GIVEN. MC PRN (04:00)
[2021-08-06] MEDS ORDERED: IOHEXOL 300 MG/ML 75 ML VIAL. IV ONE (04:00)
[2021-08-06 04:08] LABS: BASO # 0.1 x10^3/uL (0.0-0.2); BASO % 1 % (0-3); EOS # 0.1 x10^3/uL (0.0-0.7); EOS % 1 % (0-3); HEMATOCRIT 37.1 % (36.0-47.0); HEMOGLOBIN 12.7 g/dL (12.0-15.5); LYMPH # 1.5 x10^3/uL (1.0-4.8); LYMPH % 15 % (24-48); MEAN CORPUSCULAR HEMOGLOBIN 30 pg (25-35); MEAN CORPUSCULAR HGB CONC 34 g/dL (31-37); MEAN CORPUSCULAR VOLUME 86 fL (79-100); MONO # 0.6 x10^3/uL (0.0-1.1); MONO % 7 % (0-9); NEUT # 7.4 x10^3uL (1.8-7.7); NEUT % 76 % (31-73); PLATELET COUNT 284 x10^3/uL (140-400); RED BLOOD COUNT 4.31 x10^6/uL (3.50-5.40); RED CELL DISTRIBUTION WIDTH 13.3 % (11.5-14.5); WHITE BLOOD COUNT 9.8 x10^3/uL (4.0-11.0)
[2021-08-06 04:21] LABS: CALCIUM 8.8 mg/dL (8.5-10.1); GFR 61.1; POTASSIUM 3.6 mmol/L (3.5-5.1)
[2021-08-06 04:26] LABS: ALBUMIN 3.4 g/dL (3.4-5.0); ALBUMIN/GLOBULIN RATIO 0.9 (1.0-1.7); TOTAL BILIRUBIN 0.3 mg/dL (0.2-1.0)
[2021-08-06 04:28] LABS: BACTERIA,URINE 0 /HPF (0-FEW); CLARITY,URINE CLEAR; COLOR,URINE YELLOW; GLUCOSE,URINE NEG (NEG); NITRITE,URINE NEG (NEG); RBC,URINE OCC /HPF (0-2); SQUAMOUS EPITHELIAL CELL,UR FEW /LPF; UROBILINOGEN,URINE 0.2 mg/dL (0.2 mg/dL); WBC,URINE OCC /HPF (0-4)
[2021-08-06 04:31] VITALS: BP 128/64
--- NOTE | 2021-08-06 04:43 | RAD ---
EXAM: CT Abdomen and Pelvis with IV contrast CLINICAL HISTORY: Reason: OMNI 300, 75 ML IV.Epigastric pain.HX PARTIAL HYSTER, / Spl. Instr uctions: / History: . COMPARISON: none TECHNIQUE: Helical CT of the abdomen and pelvis was performed following the administration of intrave nous contrast. Axial, coronal and sagittal reformatted images were generated. Images were made available for interpretation of 4:27 AM PQRS compliance statement - One or more of the following individualized dose reduction techniques wer e utilized for this study: 1. Automated exposure control 2. Adjustment of the mA and/or kV according to patient size 3. Use of iterative reconstruction technique FINDINGS: Lower Chest: 9 mm groundglass nodule right lower lobe. Abdomen and Pelvis: Liver, spleen, adrenal glands and pancreas are unremarkable. Gallbladder wall is mildly indistinct, p ossibly physiologic for this patient although cholecystitis, some of this appearance. Kidneys are normal. No hydronephrosis or hydroureter. Bladder is unremarkable. Moderate colonic stool content. Appendix is normal. No small or large bowel dilatation. No bowel obst ruction. There has been a hysterectomy. Both ovaries are seen. No abdominal or pelvic ascites. No abdominal or pelvic lymphadenopathy. Fat-containing periumbilical hernia. No aggressive osseous lesion is seen. IMPRESSION: 1. Gallbladder wall is mildly indistinct, possibly physiologic or reactive although early cholecysti tis could also have this appearance. This can be correlated with patient's lab values and symptoms. I f additional imaging is clinically required ultrasound would provide additional details. 2. Fat-containing periumbilical hernia. 3. 9 mm groundglass nodule right lower lobe. Per Fleischner Society guidelines for incidentally foun d solitary ground-glass nodule measuring 6 mm or larger, follow-up CT is recommended in 6-12 months, then every 2 years until 5 years. Electronically signed by: Baljit Lance MD (08/06/2021 4:41 AM) [facility]
== END 2021-08-06 05:00 | disposition home or self-care (01) ==
LOC: ER 03:30
DX: R10.13 Epigastric pain (principal); R11.0 Nausea; K21.9 Gastro-esophageal reflux disease without esophagitis; Z98.890 Other specified postprocedural states; Z90.710 Acquired absence of both cervix and uterus; Z88.0 Allergy status to penicillin
CPT/HCPCS: 36415; 74177; 80053; 81001; 83690; 85025; 96361; 96374; 99285; J2405; J7030; Q9967

== ENCOUNTER → 2021-08-13 | Outpatient (CLI) | payer MEDICAID ==
[2021-08-06 04:31] VITALS: BP 128/64
--- NOTE | 2021-08-13 10:17 | RAD ---
EXAMINATION: RIGHT UPPER QUADRANT ULTRASOUND CLINICAL HISTORY: Right upper quadrant pain. TECHNIQUE: Sonography of the right upper quadrant was performed. COMPARISON: CT abdomen/pelvis 08/06/2021 FINDINGS: Pancreas: Pancreatic head grossly unremarkable on limited evaluation. Remainder of the pancreas obscu red by prominent overlying bowel gas. Liver: Somewhat limited evaluation due to prominent surrounding bowel gas. - Echotexture: Normal, homogeneous. - Echogenicity: Normal - Surface contour: Smooth - Lesions: None. Biliary: No intrahepatic biliary duct dilation. - CBD: 4 mm. - Gallbladder: Normal caliber - Contents: No cholelithiasis - Wall: Normal - Other: No pericholecystic fluid. Right Kidney: Measures 10.4 cm in length. No hydronephrosis or focal lesion. Ascites: None. Aorta/IVC: Partially visualized aorta and IVC unremarkable. IMPRESSION: Normal sonographic appearance of the gallbladder. Limited evaluation of the liver and pancreas as described. Electronically signed by: Raj Fong DO (08/13/2021 10:14 AM) [id number]
== END ==
LOC: US 08:38
PROVIDERS: ATTEND Family Medicine
DX: R10.11 Right upper quadrant pain (principal)
CPT/HCPCS: 76705

== ENCOUNTER 2021-08-29 12:34 | Emergency (ER) | payer MEDICAID ==
[~2021-08-29] VITALS: Ht 156.2 cm; Wt 79.1 kg
[2021-08-29 13:07] VITALS: BP 140/74
--- NOTE | 2021-08-29 13:15 | PHYS DOC ---
Past History Past Medical History: Anxiety, Depression, GERD Additional Past Medical Histor: cervical CA Past Surgical History: , Hysterectomy, Other Additional Past Surgical Histo: LEFT ANKLE, LEFT KNEE, PARTIAL HYSTERECTOMY Smoking: Non-smoker Alcohol Use: None Drug Use: None General Adult EDM: Chief Complaint: ANKLE PROBLEM HPI: HPI: Patient is a 41-year-old female who presents to the emergency department for left lateral ankle pain and swelling. Patient reports that she was running trying to get her dog and she felt off balance and fell. She rates her pain 7 out of 10. She denies any treatment prior to arrival. She denies any decreased range of motion but reports that pain is worse with movement. She denies any decreased sensation to her extremity. Review of Systems: Review of Systems: Musculoskeletal: See HPI Integument: See HPI Neurologic: See HPI Allergies: Allergies: Allergies Coded Allergies Type Severity Reaction Last Updated Verified Penicillins Allergy Unknown 09/04/15 Yes Physical Exam: PE: Constitutional: Well developed, well nourished, no acute distress, non-toxic appearance. [] HENT: Normocephalic, atraumatic, bilateral external ears normal, oropharynx moist, no oral exudates, nose normal. [] Eyes: PERRL, EOMI, conjunctiva normal, no discharge. [] Neck: Normal range of motion, no stridor Cardiovascular: Normal peripheral perfusion Lungs & Thorax: Normal work of breathing, no tachypnea Abdomen: Soft and flat Skin: Warm, dry, no erythema, no rash. [] Back: No tenderness, normal range of motion Extremities: No tenderness, no cyanosis, no clubbing, ROM intact, no edema. [] Left ankle: Mild swelling noted to the left lateral ankle, pain with palpation to lateral aspect of ankle, no open wounds or ecchymosis, no crepitus, no obvious deformity, range of motion intact, neuro intact Neurologic: Alert and oriented X 3, normal motor function, normal sensory function, no focal deficits noted. [] Psychologic: Affect normal, judgement normal, mood normal. [] Current Patient Data: Vital Signs: Vital Signs Date Time Temp Pulse Resp B/P (MAP) Pulse Ox O2 Delivery O2 Flow Rate FiO2 08/29/21 13:07 98.0 73 16 140/74 (96) 97 Room Air EKG: EKG: [] Radiology/Procedures: Radiology/Procedures: []PROCEDURE: ANKLE LEFT 3V XR EXAM OF ANKLE_LEFT 3V dated 08/29/2021 1:38 PM. History: Reason: ANKLE INJURY, PAIN/SWELLING / Spl. Instructions: / History: Comparison: None. Findings: No fracture or dislocation is seen. Joint spaces appear fairly well maintained, and there is no apparent destructive process. Impression: 1. No acute bony abnormality evident. Electronically signed by: Loc Ziegler Jr., MD (08/29/2021 1:56 PM) [facility] DICTATED AND SIGNED BY: LOC ZIEGLER Jr, MD DATE: 08/29/21 1355 Heart Score: C/O Chest Pain: N/A Risk Factors: Risk Factors: DM, Current or recent (<one month) smoker, HTN, HLP, family history of CAD, obesity. Risk Scores: Score 0 - 3: 2.5% MACE over next 6 weeks - Discharge Home Score 4 - 6: 20.3% MACE over next 6 weeks - Admit for Clinical Observation Score 7 - 10: 72.7% MACE over next 6 weeks - Early Invasive Strategies Course & Med Decision Making: Course & Med Decision Making Pertinent Labs and Imaging studies reviewed. (See chart for details) [] Patient resents to the emergency department for left lateral ankle pain and swelling. X-rays performed showed no acute findings. Patient's ankle placed in Wilmer wrap and she was educated on rice protocol. She is neurovascularly intact. Advised take Tylenol and ibuprofen at home for pain. I discussed with patient all findings and diagnostic testing as well as the need to follow-up with PCP for further evaluation and treatment or return to the ER if any new or worsening symptoms. Strict return precautions were also discussed at length. Patient voiced understanding and agreement with the plan. Patient is hemodynamically stable at the time of disposition. Dragon Disclaimer: Dragon Disclaimer: This electronic medical record was generated, in whole or in part, using a voice recognition dictation system. Departure Departure: Impression: Primary Impression: Ankle sprain Qualified Codes: S93.402A - Sprain of unspecified ligament of left ankle, initial encounter Disposition: HOME / SELF CARE / HOMELESS Condition: GOOD Referrals: ADY VALENCIA MD (PCP) Patient Instructions: RICE - Routine Care for Injuries Additional Instructions: You are seen in the emergency department today for ankle pain and swelling. An x-ray was performed that showed no acute findings. This will likely improve over time. Your symptoms may be improved by something called the rice protocol. This is rest, ice, compression, elevation. Please follow-up when doing intense exercises that may make the pain worse. Sometimes gentle stretching can provide relief, but be careful to injury. It is important to perform gentle range of motion exercises to prevent stiff joints and chronic pain. Use ice packs over the affected areas to help decrease your pain. For the first 24 hours you can apply ice 20 minutes on 20 minutes off for 4 times per day. Sometimes compression such as the use of an Wilmer wrap can help with the swelling. You may also elevate the affected area to help with the swelling. Take Tylenol and ibuprofen at home for any pain. Follow-up with your primary care provider on Monday regarding your ER visit. Return to the emergency department if you develop worsening of your pain, decreased range of motion and inability to bear weight or walk, or decreased sensation in your extremity. ORLIN EVANS APRN August 29, 2021 13:15
--- NOTE | 2021-08-29 13:58 | RAD ---
XR EXAM OF ANKLE_LEFT 3V dated 08/29/2021 1:38 PM. History: Reason: ANKLE INJURY, PAIN/SWELLING / Spl. Instructions: / History: Comparison: None. Findings: No fracture or dislocation is seen. Joint spaces appear fairly well maintained, and there is no appar ent destructive process. Impression: 1. No acute bony abnormality evident. Electronically signed by: Bradley Tinajero Jr., MD (08/29/2021 1:56 PM) [facility] [place]
== END 2021-08-29 14:27 | disposition home or self-care (01) ==
LOC: ER 12:34
DX: S93.402A Sprain of unspecified ligament of left ankle, initial encounter (principal); K21.9 Gastro-esophageal reflux disease without esophagitis; Z88.0 Allergy status to penicillin; W18.39XA Other fall on same level, initial encounter; Y93.02 Activity, running; Y92.89 Other specified places as the place of occurrence of the external cause; Y99.8 Other external cause status
CPT/HCPCS: 73610; 99283